=== PATIENT | female | born 1950 | race Caucasian/White ===

== ENCOUNTER → 2018-11-30 | Outpatient (CLI) | payer MEDICARE, BC ==
[~2018-11-30] MED LIST: ASPI81TA50 PO; BUPIVACAINE-EPI 0.25%-1:200000 MPF 30 ML VIAL. ONE; CRESTOR40 MG PO; DICL100G18 TP; INSU100I17 SQ; INSU100V13 SQ; LANS15CA78 PO; LOSA1TAB25 PO; METF10007 PO; METO-247 PO; NITR0.4T22 SL; SAXA5TAB PO
--- NOTE | 2018-11-30 11:03 | PDOC4 ---
Operative Report DATE 2018 Preop Diagnosis Subcutaneous mass left neck Post-op Diagnosis Same Operation Performed Excision of subcutaneous mass Patient is a 68-year-old female complaining of enlarging mass at the base of her left neck. Procedure of excision was explained to the patient detail risk benefits were also discussed including bleeding and infection alternatives to this procedure also discussed with patient who seemed to understand gave both verbal and written consent to have the procedure performed. Patient was taken to the minor room placed in the lateral positioning her neck was prepped and draped usual sterile fashion using ChloraPrep and area around the mass was injected with quarter percent Marcaine with epinephrine vision was made with 15 blade scalpel was carried down through the subcutaneous tissue excising the mass which about a 3 cm sebaceous cyst sharply and sent for pathology. The wound was then closed in a single layer of 40 septic and a Monocryl Mastisol Steri-Strips and island dressing were applied. Patient tolerated the procedure well and was discharged home in stable condition Surgeon Geo ANESTHESIA PROPOSED: LOCAL Specimen Sebaceous cyst left neck Complications None KIERAN MELGAR MD Nov 30, 2018 11:03
--- NOTE | 2018-11-30 11:04 | DISCH ---
DISCHARGE INSTRUCTIONS-DC Condition on Discharge Condition on Discharge: Stable Activity after Discharge Activity Instructions for Disc: Avoid exertion Diet after Discharge Diet after Discharge: Regular Wound/Incision Care Other wound/incision instructi: May shower in 24 hours Contacting the DRJusta after DC Call your doctor for: If your condition worsens Follow-Up Follow up with: Dr. Melgar in 2 weeks KIERAN MELGAR MD Nov 30, 2018 11:04
[2018-11-30 11:14] VITALS: BP 123/67
--- NOTE | 2018-12-02 17:06 | PATHOLOGY ---
[facility] Accession Number: [id number] . 01 Material submitted: . shoulder - LEFT SHOULDER MASS. Modifiers: left . 01 Clinical history: . Left shoulder mass . 02 Diagnosis: Skin and subcutaneous tissue, left shoulder mass excision: - Epidermal inclusion cyst. LBQ 12/02/2018 1514 Local . 02 Comment: There is no evidence of malignancy. (JPM/db; 12/02/2018) . 02 Electronically signed: . Jesus Augustin MD, Pathologist NPI- [id number] . 01 Gross description: . The specimen is received in formalin, labeled "Skyla Newsome, left shoulder mass". Received is a segment of pale mattson, previously ruptured cystic tissue measuring 2.3 x 1.7 x 1.6 cm with an attached ellipse of pale mattson skin measuring 2.0 x 0.5 cm. The surgical margin is inked. Sectioning reveals a unilocular cystic structure measuring 2.1 cm filled with pale-mattson friable material. The specimen is submitted representatively in cassette A1. (CAA; 12/01/2018) QAC/QAC 12/02/2018 1512 Local . 02 Pathologist provided ICD-10: L72.0 . 02 CPT . 961720 Specimen Comment: A courtesy copy of this report has been sent to Specimen Comment: [phone], . Specimen Comment: Report sent to / DR MAJOR Performed at: 01 [facility] [address], [place] [id number] MD Remi Kauffman MD Phone: [phone] Performed at: 02 [facility] [address] [place], [place] [id number] MD Jesus Augustin MD Phone: [phone]
== END ==
LOC: SURG 10:28
PROVIDERS: ATTEND Surgery
DX: R22.1 Localized swelling, mass and lump, neck (principal); L72.0 Epidermal cyst; E11.9 Type 2 diabetes mellitus without complications; I25.2 Old myocardial infarction; I10 Essential (primary) hypertension; Z90.710 Acquired absence of both cervix and uterus; Z79.82 Long term (current) use of aspirin; Z96.641 Presence of right artificial hip joint; Z95.5 Presence of coronary angioplasty implant and graft; Z87.891 Personal history of nicotine dependence; Z88.8 Allergy status to other drugs, medicaments and biological substances; Z79.84 Long term (current) use of oral hypoglycemic drugs
CPT/HCPCS: 11423; 88304; J3490; 11406

== ENCOUNTER → 2020-06-19 | Outpatient (CLI) | payer MEDICARE, BC ==
[2018-11-30 11:14] VITALS: BP 123/67
[~2020-06-19] MED LIST changes: -BUPIVACAINE-EPI 0.25%-1:200000 MPF 30 ML VIAL. ONE
--- NOTE | 2020-06-19 10:42 | RAD ---
EXAM: DUAL ENERGY X-RAY ABSORPTIOMETRY (DEXA). HISTORY: Postmenopausal screening. FINDINGS: The lowest measured T-score is -1.3 in the left femoral neck, based on a bone mineral densi ty of 0.858 g/cm^2. Refer to the worksheets for full detail. In comparison with the prior study of 10/16/2015, average bone mineral density at the lumbar spine dumont s changed +4.1%, while the average density at the hips has changed -4.2%. IMPRESSION: Low bone mass. Bone mineral density yields a T-score between -1.0 and -2.5. Fracture risk is increase d. FRAX was not calculated. METHODOLOGY: Dual energy x-ray absorptiometry was performed to measure bone mineral density. The foll owing analysis is based on the 2019 Official Positions of the International Society for Clinical Dens itometry: Measurements of the hips and the average of L1-L4 are preferred. When the spine and/or hip cannot be feasibly measured or interpreted, or in the setting of hyperparathyroidism, distal radial bone minera l density may be measured. The lumbar spine T-score is based on the average bone mineral density of L1-L4. In the setting of art ifact or anatomic abnormality, some lumbar levels may be excluded, and the remaining levels used for calculation. A single lumbar level is not used for diagnosis, and if only a single level is available for assessment, another anatomic site will be used to assign a diagnosis. The hip T-score is based on the bone mineral density measurement of the femoral neck or total proxima l femur of either side, whichever is lowest. Bilateral mean values are not used for diagnosis. The forearm T-score is derived from 33% of the distal radius of the nondominant forearm. For postmenopausal and perimenopausal women, and men age 50 or older, of all ethnic groups, T-scores are calculated through comparison of the current measurement with the NHANES III database standard fo r females aged 20-29 years. The lowest T-score of the evaluated anatomic sites is used to a ssign a diagnosis based on the World Health Organization densitometric classification. In premenopausal females and males younger than age 50, a Z-score is calculated based on population s pecific reference data for patient sex and self-reported ethnicity. Electronically signed by: Kelly Diehl MD (06/19/2020 10:40 AM) [id number]
== END ==
LOC: MAMMO 10:06
PROVIDERS: ATTEND Family Medicine
DX: Z00.00 Encounter for general adult medical examination without abnormal findings (principal); N95.1 Menopausal and female climacteric states
CPT/HCPCS: 77080

== ENCOUNTER → 2020-06-26 | Outpatient (CLI) | payer MEDICARE, BC ==
[2018-11-30 11:14] VITALS: BP 123/67
== END ==
LOC: MAMMO 09:40
PROVIDERS: ATTEND Family Medicine
DX: Z12.31 Encounter for screening mammogram for malignant neoplasm of breast (principal)
CPT/HCPCS: 77063; 77067

== ENCOUNTER 2020-11-06 09:41 | Emergency (ER) | payer MEDICARE, BC ==
[~2020-11-06] VITALS: Ht 165.1 cm; Wt 104.0 kg
[~2020-11-06 09:41] MED LIST changes: +LANS15CA73 PO; -LANS15CA78 PO
[2020-11-06 09:42] VITALS: BP 188/76
[2020-11-06] MEDS ORDERED: HYDROcodone/APAP 5/325MG 1 TAB TABLET PO ONE (10:45)
--- NOTE | 2020-11-06 10:46 | RAD ---
EXAM: XR CHEST 1V 11/06/2020 10:05 AM CLINICAL INDICATION: Fall COMPARISON: None available. TECHNIQUE: PA view of the chest FINDINGS: The cardiomediastinal silhouette is normal. Lungs are well-expanded and clear. No pleural effusion or pneumothorax. There is a left proximal humerus fracture. IMPRESSION: 1. No acute cardiopulmonary abnormality. 2. Left proximal humerus fracture. Electronically signed by: Laura Damon MD (11/06/2020 10:43 AM) [id number]
--- NOTE | 2020-11-06 10:58 | RAD ---
EXAM: XR PELVIS 1-2V, XR SHOULDER_LEFT 2+ VIEWS, XR HUMERUS_LT 2 VIEWS 11/06/2020 10:05 AM CLINICAL INDICATION: Fall COMPARISON: None TECHNIQUE: 3 views of the left shoulder. 2 views of the left humerus. One view of the pelvis. FINDINGS: Left shoulder: There is a minimally displaced comminuted left proximal humerus fracture involving the humeral head and neck. This extends to the articular surface superiorly. Mild posterior angulation. No dislocation. Mild acromioclavicular degenerative joint disease. Left humerus: Left proximal humerus fracture as above. No other fracture or dislocation. Pelvis: There is a right total hip prosthesis. No periprosthetic fracture. There is mild degenerative joint disease of the left hip. No pubic symphysis or sacroiliac joint widening. IMPRESSION: 1. Comminuted left proximal humerus fracture. 2. No acute osseous abnormality of the pelvis. Electronically signed by: Laura Damon MD (11/06/2020 10:55 AM) [id number]
--- NOTE | 2020-11-06 11:03 | PHYS DOC ---
General Adult EDM: Chief Complaint: MECHANICAL FALL HPI: HPI: Patient is a 70-year-old female who presents after a fall while walking her dog this morning. Patient states she tripped on the sidewalk. Patient is reporting left shoulder pain. Patient denies hitting her head or loss of consciousness. Patient states "I had to call an ambulance to bring me to the ER". Denies medication prior to arrival. (BURT WING APRN) Review of Systems: Review of Systems: ROS At least 10 ROS systems have been reviewed and are negative except as documented in the HPI. General: Negative except as outlined in HPI above. Skin: Negative except as outlined in HPI above. HEENT: Negative except as outlined in HPI above. Neck: Negative except as outlined in HPI above. Respiratory: Negative except as outlined in HPI above.. Cardiovascular: Negative except as outlined in HPI above. Abdomen: Negative except as outlined in HPI above. : Negative except as outlined in HPI above. Back/MSK: Negative except as outlined in HPI above. Neuro: Negative except as outlined in HPI above. Psych: Negative except as outlined in HPI above. (BURT WING APRN) Current Medications: Current Meds: Current Medications Medications (Trade) Dose Ordered Sig/Geno Start Time Stop Time Status Last Admin Dose Admin Acetaminophen/ Hydrocodone Bitart (Lortab 5/325) 2 tab 1X ONCE 11/06/20 10:45 11/06/20 10:54 DC (BURT WING APRN) Allergies: Allergies: Allergies Coded Allergies Type Severity Reaction Last Updated Verified cimetidine Allergy Unknown 11/30/18 Yes tetracycline Allergy Unknown 11/30/18 Yes (BURT WING APRN) Physical Exam: PE: Constitutional: Well developed, well nourished, no acute distress, non-toxic appearance. [] HENT: Normocephalic, atraumatic, bilateral external ears normal, oropharynx moist, no oral exudates, nose normal. [] Eyes: PERRLA, EOMI, conjunctiva normal, no discharge. [] Neck: Normal range of motion, no tenderness, supple, no stridor. [] Cardiovascular:Heart rate regular rhythm, no murmur [] Lungs & Thorax: Bilateral breath sounds clear to auscultation [] Abdomen: Bowel sounds normal, soft, no tenderness, no masses, no pulsatile masses. [] Skin: Warm, dry, no erythema, no rash. [] Back: No tenderness, no CVA tenderness. [] Extremities: Left arm and shoulder tenderness, pain with range of motion Neurologic: Alert and oriented X 3, normal motor function, normal sensory function, no focal deficits noted. [] Psychologic: Affect normal, judgement normal, mood normal. [] (BURT WING APRN) EKG: EKG: [] (BURT WING APRN) Radiology/Procedures: Radiology/Procedures: EXAM: XR PELVIS 1-2V, XR SHOULDER_LEFT 2+ VIEWS, XR HUMERUS_LT 2 VIEWS 11/06/2020 10:05 AM CLINICAL INDICATION: Fall COMPARISON: None TECHNIQUE: 3 views of the left shoulder. 2 views of the left humerus. One view of the pelvis. FINDINGS: Left shoulder: There is a minimally displaced comminuted left proximal humerus fracture involving the humeral head and neck. This extends to the articular surface superiorly. Mild posterior angulation. No dislocation. Mild acromioclavicular degenerative joint disease. Left humerus: Left proximal humerus fracture as above. No other fracture or dislocation. Pelvis: There is a right total hip prosthesis. No periprosthetic fracture. There is mild degenerative joint disease of the left hip. No pubic symphysis or sacroiliac joint widening. IMPRESSION: 1. Comminuted left proximal humerus fracture. 2. No acute osseous abnormality of the pelvis. Electronically signed by: Laura Damon MD (11/06/2020 10:55 AM) [id number] (BURT WING APRN) Heart Score: C/O Chest Pain: No Risk Factors: Risk Factors: DM, Current or recent (<one month) smoker, HTN, HLP, family history of CAD, obesity. Risk Scores: Score 0 - 3: 2.5% MACE over next 6 weeks - Discharge Home Score 4 - 6: 20.3% MACE over next 6 weeks - Admit for Clinical Observation Score 7 - 10: 72.7% MACE over next 6 weeks - Early Invasive Strategies (BURT WING APRN) Course & Med Decision Making: Course & Med Decision Making Pertinent Labs and Imaging studies reviewed. (See chart for details) [] 70-year-old female presents after a fall while walking her dog this morning. Patient reports she tripped on the sidewalk. Reporting left shoulder pain. Radial pulses intact. Pain with range of motion. Patient given hydrocodone. Neurovascularly intact. Chest, pelvis, shoulder, humerus x-rays ordered to rule out fracture. X-ray is concerning for left proximal humerus fracture. Discussed results with patient. Patient instructed to follow-up with [facility] for further evaluation and management. Arm sling placed on patient. Patient sent home with hydrocodone for pain. Instructed patient she could also take ibuprofen in between for pain. Rice instructions given. (BURT WING APRN) Course & Med Decision Making I was the Attending physician on the above date of service of this patient. This patient was evaluated, examined, treated, and dispositioned from the emergency department by the mid-level practitioner. Electronically signed, Nilsa Potter DO (NILSA POTTER DO) Amna Disclaimer: Amna Disclaimer: This electronic medical record was generated, in whole or in part, using a voice recognition dictation system. (BURT WING APRN) Departure Departure: Impression: Primary Impression: Humerus fracture Qualified Codes: S42.295A - Other nondisplaced fracture of upper end of left humerus, initial encounter for closed fracture Disposition: HOME / SELF CARE / HOMELESS Condition: STABLE Referrals: ELIZABETH MAJOR (PCP) Patient Instructions: Humerus Fracture, Treated with Immobilization, [id number] Additional Instructions: You are seen emergency room after a fall. Imaging shows a left, humerus fracture. You were given a arm sling to wear. Try and rest, use ice, continue to wear arm sling, and elevate. I would like you to call [facility] today to make a follow-up appointment for further management and treatment. I am also sending you home with prescription for hydrocodone to help with pain. You can take ibuprofen as well. Please return to the emergency room if you have worsening symptoms or concerns, otherwise follow-up with orthopedics. [facility] Address: [address] [facility], [place] [address] Closes 4:30PM EMERGENCY DEPARTMENT GENERAL DISCHARGE INSTRUCTIONS Thank you for coming to [facility] (ED) today and trusting us with you care. We trust that you had a positivie experience in our Emergency Department. If you wish to speak to the department management, you may call the director at [phone]. YOUR FOLLOW UP INSTRUCTIONS ARE FOLLOWS: 1. Do you have a private Doctor? If you do not have a private doctor, please ask for a resource list of physicians or clinics that may be able to assist you with follow up care. 2. The Emergency Physician has interpreted your x-rays. The X-Ray specialist will also review them. If there is a change in the findings, you will be notified in 48 hours when at all possible. 3. A lab test or culture has been done, your results will be reviewed and you will be notified if you need a change in treatment. ADDITIONAL INSTRUCTIONS AND INFORMATION: 1. Your care today has been supervised by a physician who is specially trained in emergency care. Many problems require more than one evaluation for a complete diagnosis and treatment. We recommend that you schedule your follow up appointment as recommended to ensure complete treatment of you illness or injury. If you are unable to obtain follow up care and continue to have a problem, or if your condition worsens, we recommend that you return to the ED. 2. We are not able to safely determine your condition over the phone nor are we able to give sound medical advice over the phone. For these safety reasons, if you call for medical advice we will ask you to come to the ED for further evaluation. 3. If you have any questions regarding these discharge instructions please call the ED at [phone]. SAFETY INFORMATION: In the interest of safety, wellness, and injury prevention; we encourage you to wear your sealbelt, if you smoke; quite smoking, and we encourage family to use a protective helmet for bicycling and other sporting events that present an increased risk for head injury. IF YOUR SYMPTOMS WORSEN OR NEW SYMPTOMS DEVELOP, OR YOU HAVE CONCERNS ABOUT YOUR CONDITION; OR IF YOUR CONDITION WORSENS WHILE YOU ARE WAITING FOR YOUR FOLLOW UP APPOINTMENT; EITHER CONTACT YOUR PRIMARY CARE DOCTOR, THE PHYSICIAN WHOSE NAME AND NUMBER YOU WERE GIVEN, OR RETURN TO THE ED IMMEDIATELY. Scripts Hydrocodone Bit/Acetaminophen (HYDROCODONE-APAP 5-325 ) 1 Each Tablet 0.5-1 TAB PO PRN Q6HRS PRN for PAIN for 3 Days, #12 TAB 0 Refills Prov: BURT WING APRN 11/06/20 BURT WING APRN Nov 06, 2020 11:03 NILSA POTTER DO Nov 07, 2020 07:23
[2020-11-06] MEDS ORDERED: HYDR-2155 PO (11:41)
== END 2020-11-06 12:04 | disposition home or self-care (01) ==
LOC: ER 09:41
DX: S42.202A Unspecified fracture of upper end of left humerus, initial encounter for closed fracture (principal); Z88.1 Allergy status to other antibiotic agents; Z88.8 Allergy status to other drugs, medicaments and biological substances; W01.0XXA Fall on same level from slipping, tripping and stumbling without subsequent striking against object, initial encounter; Y93.K1 Activity, walking an animal; Y92.89 Other specified places as the place of occurrence of the external cause; Y99.8 Other external cause status
CPT/HCPCS: 71045; 72170; 73030; 73060; 99284